=== PATIENT | male | born 1985 | race Caucasian/White ===

== ENCOUNTER 2017-10-08 20:54 | Inpatient (IN) | payer OTHER ==
[2017-10-08 21:01] VITALS: BMI 30.1
--- NOTE | 2017-10-08 21:14 | HP ---
CIWA Score - CIWA Score Nausea/Vomitin Muscle Tremors: 5 Anxiety: 4-Mod. Anxious/Guarded Agitation: 4-Moderately Restless Paroxysmal Sweats: No Perspiration Orientation: 1-Uncertain about Date Tacttile Disturbances: 0-None Auditory Disturbances: 0-None Visual Disturbances: 0-None Headache: 3-Moderate CIWA-Ar Total Score: 20 Admission ROS BHS - HPI Chief Complaint: Alcohol withdrawal symptoms Allergies/Adverse Reactions: Allergies Allergy/AdvReac Type Severity Reaction Status Date / Time No Known Allergies Allergy Verified 10/08/17 21:10 History of Present Illness: 32 years old male with a history of alcohol dependence is seeking admission to detox. Patient has been in previous detox and denies significant period of sobriety. He has medical history of depression, anxiety, Hep C, seizure disorder and suicide attempt at 17 years old but denies suicidal ideation at this time. Patient was referred from [facility] and states that he is homeless. This is his first admission to [facility]. Exam Limitations: Intoxication - Ebola screening Have you traveled outside of the country in the last 21 days: No Have you had contact with anyone from an Ebola affected area: No Have you been sick,other than usual withdrawal symptoms: No Do you have a fever: No - Review of Systems Constitutional: Chills, Diaphoresis, Night Sweats, Changes in sleep EENT: reports: Blurred Vision (Left eye) Respiratory: reports: Cough (Non productive) Cardiac: reports: No Symptoms Reported GI: reports: Nausea, Poor Appetite, Poor Fluid Intake, Abdominal cramping : reports: No Symptoms Reported Musculoskeletal: reports: Muscle Pain, Muscle Weakness Neuro: reports: Headache, Seizure, Tingling, Tremors, Weakness, Unsteady Gait Hematology: reports: No Symptoms Reported Psychiatric: reports: Agitated, Anxious, Depressed Other Systems: Reviewed and Negative Patient History - Patient Medical History Hx Anemia: No Hx Asthma: No Hx Chronic Obstructive Pulmonary Disease (COPD): No Hx Cancer: No Hx Cardiac Disorders: No Hx Congestive Heart Failure: No Hx Hypertension: No Hx Hypercholesterolemia: No Hx Pacemaker: No HX Cerebrovascular Accident: No Hx Seizures: Yes Hx Diabetes: No Hx Gastrointestinal Disorders: No Hx Liver Disease: No Hx Genitourinary Disorders: No Hx Sexually Transmitted Disorders: No Hx Renal Disease (ESRD): No Hx Thyroid Disease: No Hx Human Immunodeficiency Virus (HIV): No (Negative 2016) Hx Hepatitis C: Yes Hx Depression: Yes Hx Suicide Attempt: Yes Hx Bipolar Disorder: Yes Hx Schizophrenia: No - Patient Surgical History Past Surgical History: Yes Hx Neurologic Surgery: No Hx Cataract Extraction: No Hx Cardiac Surgery: No Hx Lung Surgery: No Hx Abdominal Surgery: Yes Hx Appendectomy: No Hx Cholecystectomy: No Hx Genitourinary Surgery: No Hx Orthopedic Surgery: No Anesthesia Reaction: No - PPD History Previous Implant?: Yes Implanted On [facility] Admission?: No PPD to be Administered?: Yes - Reproductive History Patient is a Female of Child Bearing Age (11 -55 yrs old): No (MALE) - Smoking Cessation Smoking history: Current every day smoker Have you smoked in the past 12 months: Yes Aproximately how many cigarettes per day: 20 Hx Chewing Tobacco Use: No Initiated information on smoking cessation: Yes 'Breaking Loose' booklet given: 10/08/17 - Substance & Tx. History Hx Alcohol Use: Yes Hx Substance Use: No Substance Use Type: Alcohol Hx Substance Use Treatment: Yes ([facility]) - Substances Abused Alcohol Route: Oral Frequency: Daily Amount used: Vodka-3 pints, Beer -1 (6 pack) Age of first use: 15 Date of Last Use: 10/08/17 Family Disease History - Family Disease History Family Disease History: Other: Father (Cirrhosis of liver- ) Admission Physical Exam S - Vital Signs Vital Signs: Vital Signs - 24 hr 10/08/17 21:00 Temperature 97.5 F L Pulse Rate 110 H Respiratory 20 Rate Blood Pressure 164/94 - Physical General Appearance: Yes: Moderate Distress, Alcohol on Breath, Intoxicated, Tremorous, Irritable, Sweating, Anxious HEENTM: Yes: EOMI, ANAND, Nasal Congestion Respiratory: Yes: Lungs Clear, Normal Breath Sounds, No Respiratory Distress Neck: Yes: Supple Breast: Yes: Breast Exam Deferred Cardiology: Yes: S1, S2, Tachycardia Abdominal: Yes: Normal Bowel Sounds, Soft, Surgical Scar (right upper abdomen) Genitourinary: Yes: Within Normal Limits Back: Yes: Within Normal Limits Musculoskeletal: Yes: Back pain, Muscle Pain, Muscle weakness Extremities: Yes: Tremors Neurological: Yes: Disoriented, Depressed Affect Integumentary: Yes: Dry, Rash (both hands) Lymphatic: Yes: Within Normal Limits - Diagnostic (1) Alcohol dependence with uncomplicated withdrawal Current Visit: Yes Status: Chronic (2) Depression Current Visit: Yes Status: Chronic (3) Seizures Current Visit: Yes Status: Chronic (4) Hep C w/o coma, chronic Current Visit: Yes Status: Chronic (5) Anxiety Current Visit: Yes Status: Chronic (6) Nicotine dependence Current Visit: Yes Status: Chronic Cleared for Admission [facility] - Detox or Rehab [facility] Level of Care: Medically Managed Detox Regimen/Protocol: Librium S Breath Alcohol Content Breath Alcohol Content: 0.451 Urine Drug Screen - Results Drug Screen Negative: No Urine Drug Screen Results: BZO-Benzodiazepines
[2017-10-08] MEDS ORDERED: MAGNESIUM CITRATE 300 ML BOTTLE PO PRN (21:24)
[2017-10-08] MEDS ORDERED: guaiFENesin/D-METHORPHAN HB 10 ML UNIT-DOSE CUPS PO PRN (21:24)
[2017-10-08] MEDS ORDERED: MAG HYDROX/AL HYDROX/SIMETH 30 ML UNIT-DOSE CUP PO PRN (21:24)
[2017-10-08] MEDS ORDERED: LOPERAMIDE HCL 2 MG CAPSULE PO PRN (21:24)
[2017-10-08] MEDS ORDERED: NICOTINE POLACRILEX 2 MG GUM BC PRN (21:24)
[2017-10-08] MEDS ORDERED: ACETAMINOPHEN 325 MG TABLET (FP) PO PRN (21:24)
[2017-10-08] MEDS ORDERED: IBUPROFEN 400 MG TABLET (FP) PO PRN (21:24)
[2017-10-08] MEDS ORDERED: P-EPHED 60MG/TRIPROLIDI 2.5MG TABLET PO PRN (21:24)
[2017-10-08] MEDS ORDERED: MAGNESIUM HYDROX 2400MG/30ML ORAL SUSPENSION 30 ML CUP PO PRN (21:24)
[2017-10-08] MEDS ORDERED: MENTHOL/PHENOL 1 EACH UD MM PRN (21:24)
[2017-10-08] MEDS: THIAMINE HCL 100 MG TABLET (FP) PO SCH (22:04)
[2017-10-08] MEDS: chlordiazePOXIDE HCL 25 MG CAPSULE PO SCH (22:04)
[2017-10-08] MEDS: hydrOXYzine PAMOATE 50 MG CAPSULE (FP) PO PRN (22:34)
[2017-10-08 23:11] LABS: URINE APPEARANCE CLEAR; URINE BILIRUBIN NEGATIVE (NEGATIVE); URINE BLOOD NEGATIVE (NEGATIVE); URINE COLOR STRAW; URINE GLUCOSE (UA) NEGATIVE (NEGATIVE); URINE KETONE NEGATIVE (NEGATIVE); URINE NITRITE NEGATIVE (NEGATIVE); URINE UROBILINOGEN NEGATIVE mg/dL (0.2-1.0)
[2017-10-08 23:15] LABS: URINE PROTEIN 2+ (NEGATIVE)
[2017-10-08 23:17] LABS: URINE RBC <1 /hpf (0-3)
[2017-10-09] MEDS: chlordiazePOXIDE HCL 25 MG CAPSULE PO SCH ×4 (05:27→22:09)
[2017-10-09] MEDS: chlordiazePOXIDE HCL 25 MG CAPSULE PO PRN ×2 (08:35→12:46)
[2017-10-09 10:04] LABS: MCH 30.3 pg (25.7-33.7); MCHC 32.5 g/dl (32.0-35.9); MEAN CELL VOLUME 93.2 fl (80-96); MEAN PLT VOLUME 6.9 fl (7.5-11.1); PLATELET COUNT 299 K/MM3 (134-434); RDW 15.8 % (11.9-15.9); WHITE BLOOD COUNT 3.5 K/mm3 (4.0-10.0)
[2017-10-09 10:05] LABS: URINE LEUK ESTERASE Negative (NEGATIVE)
[2017-10-09 10:32] LABS: ALBUMIN 3.6 g/dl (3.4-5.0); ALK PHOS 90 U/L (45-117); ANION GAP 9 (8-16); BILIRUBIN,TOTAL 0.7 mg/dL (0.2-1.0); CO2 28 mmol/L (21-32); CREATININE 0.6 mg/dL (0.7-1.3); GLUCOSE,RANDOM 81 mg/dL (74-106); SGOT/AST 93 U/L (15-37); SGPT/ALT 101 U/L (12-78); TOT PROT 7.2 g/dl (6.4-8.2)
[2017-10-09] MEDS: PRENATAL VITAMINS W/ FOLIC ACID TABLET (FP) PO SCH (10:33)
[2017-10-09] MEDS: NICOTINE 14 MG/24 HOURS TOPICAL PATCH TD SCH (10:34)
[2017-10-09] MEDS ORDERED: ONDANSETRON *ODT* 4 MG TABLET SL PRN (12:27)
[2017-10-09] MEDS: hydrOXYzine PAMOATE 50 MG CAPSULE (FP) PO PRN (12:28)
--- NOTE | 2017-10-09 14:16 | CONSULT ---
[facility] Psychiatric Consult - Data Date of interview: 10/09/17 Admission source: [facility] Identifying data: First admission to [facility] for this 32 y/o male seeking detox treatment on for alcohol dependence.Patient is ,a father of one,homeless,unemplotyed and supported on foiod stamps. Substance Abuse History: Confirmed by patient.See current [facility] report for details. Smoking history: Current every day smoker. Have you smoked in the past 12 months: Yes. Aproximately how many cigarettes per day: 20. Hx Chewing Tobacco Use: No. Initiated information on smoking cessation: Yes. 'Breaking Loose' booklet given: 10/08/17. - Substance & Tx. History. Hx Alcohol Use: Yes. Hx Substance Use: No. Substance Use Type: Alcohol. Hx Substance Use Treatment: Yes ([facility]). - Substances Abused. Alcohol. Route: Oral. Frequency: Daily. Amount used: Vodka-3 pints, Beer -1 (6 pack). Age of first use: 15. Date of Last Use: 10/08/17 Medical History: Hepatitis C,antecedent of abdominal surgery,GERD and a history of seizures (withdrawal-related). Psychiatric History: No reported history of psychiatric hospitalizations.Patient declares that he used to be prescribed seroquel, trazodone and neurontin (from a detox facility in [facility]Non-adherent to medications for " more than a month." Diagnosed with MDD and Anxiety Disorder.Mr Bailey states that he has no contact with any [employer]PD care providers at this time.Denies history of suicide attempts. Physical/Sexual Abuse/Trauma History: Patient denies. Additional Comment: Urine Drug Screen Results: BZO-Benzodiazepines.Noted. Mental Status Exam - Mental Status Exam Alert and Oriented to: Time, Place, Person Cognitive Function: Good Patient Appearance: Well Groomed Mood: Hopeful, Euthymic Affect: Appropriate, Normal Range Patient Behavior: Appropriate, Cooperative Speech Pattern: Clear Voice Loudness: Normal Thought Process: Goal Oriented Thought Disorder: Not Present Hallucinations: Denies Suicidal Ideation: Denies Homicidal Ideation: Denies Insight/Judgement: Poor Sleep: Poorly, Difficulty falling asleep Appetite: Good Muscle strength/Tone: Normal Gait/Station: Normal Psychiatric Findings - Problem List ([place] 1, 2,3) (1) Alcohol dependence with uncomplicated withdrawal Current Visit: Yes Status: Acute (2) Substance induced mood disorder Current Visit: Yes Status: Acute (3) Nicotine dependence Current Visit: Yes Status: Acute (4) Insomnia Current Visit: Yes Status: Acute - Initial Treatment Plan Initial Treatment Plan: Psychoeducation.Detoxification.Seroquel 100 mg po hs ( patient's request).Side effects/benefits are discussed with the patient.He is in agreement with this careplan.Observation.Survey of pharmacy claims : none found.NO Home medications.
--- NOTE | 2017-10-09 15:18 | PN ---
S CIWA - CIWA Score Nausea/Vomitin Muscle Tremors: 3 Anxiety: 4-Mod. Anxious/Guarded Agitation: 3 Paroxysmal Sweats: 3 Orientation: 0-Oriented Tacttile Disturbances: 1-Very Mild Itch/Numbness Auditory Disturbances: 2-Mild Harshness/Frighten Visual Disturbances: 0-None Headache: 0-None Present CIWA-Ar Total Score: 19 BHS Progress Note (SOAP) Subjective: Nausea, Tremors, Interrupted Sleep, Fatigue, Sweating. Objective: PT. A & O X 2 (UNCERTAIN ABOUT DAY/ DATE). NO ACUTE DISTRESS. 10/09/17 15:15 Vital Signs Temperature 96.1 F L 10/09/17 13:39 Pulse Rate 87 10/09/17 13:39 Respiratory Rate 20 10/09/17 13:39 Blood Pressure 139/88 10/09/17 13:39 O2 Sat by Pulse Oximetry (%) Laboratory Tests 10/08/17 10/09/17 10/09/17 23:00 07:00 07:00 WBC 3.5 L RBC 4.11 Hgb 12.4 Hct 38.3 MCV 93.2 MCH 30.3 MCHC 32.5 RDW 15.8 Plt Count 299 MPV 6.9 L Sodium 142 Potassium 3.8 Chloride 105 Carbon Dioxide 28 Anion Gap 9 BUN 10 Creatinine 0.6 L Creat Clearance w eGFR > 60 Random Glucose 81 Calcium 8.0 L Total Bilirubin 0.7 AST 93 H ALT 101 H Alkaline Phosphatase 90 Total Protein 7.2 Albumin 3.6 Urine Color Straw Urine Appearance Clear Urine pH 7.0 Ur Specific [place] 1.011 Urine Protein 2+ H Urine Glucose (UA) Negative Urine Ketones Negative Urine Blood Negative Urine Nitrite Negative Urine Bilirubin Negative Urine Urobilinogen Negative Ur Leukocyte Esterase Negative Urine WBC (Auto) None Urine RBC (Auto) <1 RPR Titer 10/09/17 07:00 WBC RBC Hgb Hct MCV MCH MCHC RDW Plt Count MPV Sodium Potassium Chloride Carbon Dioxide Anion Gap BUN Creatinine Creat Clearance w eGFR Random Glucose Calcium Total Bilirubin AST ALT Alkaline Phosphatase Total Protein Albumin Urine Color Urine Appearance Urine pH Ur Specific [place] Urine Protein Urine Glucose (UA) Urine Ketones Urine Blood Urine Nitrite Urine Bilirubin Urine Urobilinogen Ur Leukocyte Esterase Urine WBC (Auto) Urine RBC (Auto) RPR Titer Nonreactive LABS NOTED. Assessment: 10/09/17 15:16 WITHDRAWAL SYMPTOMS. Plan: CONTINUE DETOX. INCREASE DAILY PO FLUID INTAKE. REPEAT AST ON 10/11/2017 FOR ELEVATED ADMISSION LEVEL.
[2017-10-09] MEDS: QUEtiapine FUMARATE 100 MG TABLET (FP) PO SCH (22:09)
[2017-10-09] MEDS: THIAMINE HCL 100 MG TABLET (FP) PO SCH (22:09)
[2017-10-10] MEDS: chlordiazePOXIDE HCL 25 MG CAPSULE PO SCH ×3 (05:37→17:39)
--- NOTE | 2017-10-10 07:57 | EKG ---
Test Reason : Blood Pressure : / mmHG Vent. Rate : 076 BPM Atrial Rate : 076 BPM P-R Int : 138 ms QRS Dur : 106 ms QT Int : 388 ms P-R-T Axes : 019 019 -02 degrees QTc Int : 436 ms NORMAL SINUS RHYTHM NONSPECIFIC T WAVE ABNORMALITY ABNORMAL ECG WHEN COMPARED WITH ECG OF 08-OCT-2017 23:13, NO SIGNIFICANT CHANGE WAS FOUND Confirmed by MD Dodge Daniel [id number]) on 10/09/2017 4:47:20 PM Also confirmed by MD Dodge Daniel ([id number]), editor sound MILTON GONZALEZ ([id number]) on 10/10/2017 7:57:31 AM Also confirmed by MD Dodge Daniel ([id number]), editor sound MILTON GONZALEZ ([id number]) on 10/10/2017 8:26:20 AM Referred By: WAYNE HERNANDEZ Confirmed By:Milton Dodge MD
--- NOTE | 2017-10-10 07:57 | EKG ---
Test Reason : Blood Pressure : / mmHG Vent. Rate : 088 BPM Atrial Rate : 088 BPM P-R Int : 146 ms QRS Dur : 102 ms QT Int : 356 ms P-R-T Axes : 074 023 036 degrees QTc Int : 430 ms NORMAL SINUS RHYTHM INCOMPLETE RIGHT BUNDLE BRANCH BLOCK BORDERLINE ECG NO PREVIOUS ECGS AVAILABLE Confirmed by MD Dodge Daniel [id number]) on 10/09/2017 3:01:29 PM Also confirmed by MD Dodge Daniel ([id number]), technical editor MILTON GONZALEZ ([id number]) on 10/10/2017 7:57:37 AM Also confirmed by MD Dodge Daniel ([id number]), technical editor MILTON GONZALEZ ([id number]) on 10/10/2017 8:26:11 AM Referred By: WAYNE HERNANDEZ Confirmed By:Milton Dodge MD
[2017-10-10] MEDS: NICOTINE 14 MG/24 HOURS TOPICAL PATCH TD SCH (10:30)
[2017-10-10] MEDS: PRENATAL VITAMINS W/ FOLIC ACID TABLET (FP) PO SCH (10:30)
[2017-10-10] MEDS: chlordiazePOXIDE HCL 25 MG CAPSULE PO PRN (13:09)
[2017-10-10] MEDS: hydrOXYzine PAMOATE 50 MG CAPSULE (FP) PO PRN (13:09)
--- NOTE | 2017-10-10 14:45 | PN ---
[facility] CIWA - CIWA Score Nausea/Vomitin-No Nausea/No Vomiting Muscle Tremors: 4-Moderate,w/Arms Extend Anxiety: 3 Agitation: 3 Paroxysmal Sweats: 3 Orientation: 0-Oriented Tacttile Disturbances: 0-None Auditory Disturbances: 2-Mild Harshness/Frighten Visual Disturbances: 1-Very Mild Sensitivity Headache: 0-None Present CIWA-Ar Total Score: 16 S Progress Note (SOAP) Subjective: Sweating, tremors, Fatigue. Objective: PT. A & O X 3. NO ACUTE DISTRESS. 10/10/17 14:42 Vital Signs Temperature 96.8 F L 10/10/17 13:06 Pulse Rate 85 10/10/17 13:06 Respiratory Rate 18 10/10/17 13:06 Blood Pressure 138/89 10/10/17 13:06 O2 Sat by Pulse Oximetry (%) Laboratory Tests 10/08/17 10/09/17 10/09/17 23:00 07:00 07:00 WBC 3.5 L RBC 4.11 Hgb 12.4 Hct 38.3 MCV 93.2 MCH 30.3 MCHC 32.5 RDW 15.8 Plt Count 299 MPV 6.9 L Sodium 142 Potassium 3.8 Chloride 105 Carbon Dioxide 28 Anion Gap 9 BUN 10 Creatinine 0.6 L Creat Clearance w eGFR > 60 Random Glucose 81 Calcium 8.0 L Total Bilirubin 0.7 AST 93 H ALT 101 H Alkaline Phosphatase 90 Total Protein 7.2 Albumin 3.6 Urine Color Straw Urine Appearance Clear Urine pH 7.0 Ur Specific [place] 1.011 Urine Protein 2+ H Urine Glucose (UA) Negative Urine Ketones Negative Urine Blood Negative Urine Nitrite Negative Urine Bilirubin Negative Urine Urobilinogen Negative Ur Leukocyte Esterase Negative Urine WBC (Auto) None Urine RBC (Auto) <1 RPR Titer 10/09/17 07:00 WBC RBC Hgb Hct MCV MCH MCHC RDW Plt Count MPV Sodium Potassium Chloride Carbon Dioxide Anion Gap BUN Creatinine Creat Clearance w eGFR Random Glucose Calcium Total Bilirubin AST ALT Alkaline Phosphatase Total Protein Albumin Urine Color Urine Appearance Urine pH Ur Specific [place] Urine Protein Urine Glucose (UA) Urine Ketones Urine Blood Urine Nitrite Urine Bilirubin Urine Urobilinogen Ur Leukocyte Esterase Urine WBC (Auto) Urine RBC (Auto) RPR Titer Nonreactive LABS NOTED. Assessment: 10/10/17 14:43 WITHDRAWAL SYMPTOMS. Plan: CONTINUE DETOX. REPEAT UA FOR ELEVATED ADMISSION UA BLOOD LEVEL. INCREASE DAILY PO FLUID INTAKE.
[2017-10-10 17:21] LABS: URINE APPEARANCE CLEAR; URINE BILIRUBIN NEGATIVE (NEGATIVE); URINE BLOOD NEGATIVE (NEGATIVE); URINE COLOR LTYELLOW; URINE GLUCOSE (UA) NEGATIVE (NEGATIVE); URINE KETONE NEGATIVE (NEGATIVE); URINE LEUK ESTERASE NEGATIVE (NEGATIVE); URINE NITRITE NEGATIVE (NEGATIVE); URINE PROTEIN NEGATIVE (NEGATIVE); URINE UROBILINOGEN NEGATIVE mg/dL (0.2-1.0)
[2017-10-10 19:32] LABS: URINE LEUK ESTERASE Negative (NEGATIVE)
[2017-10-10] MEDS: QUEtiapine FUMARATE 100 MG TABLET (FP) PO SCH (22:16)
[2017-10-10] MEDS: chlordiazePOXIDE 5 MG CAPSULE PO SCH (22:16)
[2017-10-10] MEDS: THIAMINE HCL 100 MG TABLET (FP) PO SCH (22:16)
[2017-10-11] MEDS: chlordiazePOXIDE 5 MG CAPSULE PO SCH ×3 (05:55→17:30)
[2017-10-11] MEDS: NICOTINE 14 MG/24 HOURS TOPICAL PATCH TD SCH (10:31)
[2017-10-11] MEDS: PRENATAL VITAMINS W/ FOLIC ACID TABLET (FP) PO SCH (10:31)
[2017-10-11] MEDS: hydrOXYzine PAMOATE 50 MG CAPSULE (FP) PO PRN (17:33)
--- NOTE | 2017-10-11 19:14 | PN ---
BHS Progress Note (SOAP) Subjective: Constipation, Tremors, Sweating. Objective: PT. A & O X 3, OBSERVED AMBULATING ON UNIT. NO ACUTE DISTRESS. 10/11/17 19:12 Vital Signs Temperature 98.2 F 10/11/17 17:53 Pulse Rate 71 10/11/17 17:53 Respiratory Rate 16 10/11/17 17:53 Blood Pressure 111/63 10/11/17 17:53 O2 Sat by Pulse Oximetry (%) Laboratory Tests 10/08/17 10/09/17 10/09/17 23:00 07:00 07:00 WBC 3.5 L RBC 4.11 Hgb 12.4 Hct 38.3 MCV 93.2 MCH 30.3 MCHC 32.5 RDW 15.8 Plt Count 299 MPV 6.9 L Sodium 142 Potassium 3.8 Chloride 105 Carbon Dioxide 28 Anion Gap 9 BUN 10 Creatinine 0.6 L Creat Clearance w eGFR > 60 Random Glucose 81 Calcium 8.0 L Total Bilirubin 0.7 AST 93 H ALT 101 H Alkaline Phosphatase 90 Total Protein 7.2 Albumin 3.6 Urine Color Straw Urine Appearance Clear Urine pH 7.0 Ur Specific [place] 1.011 Urine Protein 2+ H Urine Glucose (UA) Negative Urine Ketones Negative Urine Blood Negative Urine Nitrite Negative Urine Bilirubin Negative Urine Urobilinogen Negative Ur Leukocyte Esterase Negative Urine WBC (Auto) None Urine RBC (Auto) <1 RPR Titer 10/09/17 10/10/17 10/11/17 07:00 14:55 07:00 WBC RBC Hgb Hct MCV MCH MCHC RDW Plt Count MPV Sodium Potassium Chloride Carbon Dioxide Anion Gap BUN Creatinine Creat Clearance w eGFR Random Glucose Calcium Total Bilirubin AST 76 H ALT Alkaline Phosphatase Total Protein Albumin Urine Color Ltyellow Urine Appearance Clear Urine pH 8.0 Ur Specific [place] 1.015 Urine Protein Negative Urine Glucose (UA) Negative Urine Ketones Negative Urine Blood Negative Urine Nitrite Negative Urine Bilirubin Negative Urine Urobilinogen Negative Ur Leukocyte Esterase Negative Urine WBC (Auto) Urine RBC (Auto) RPR Titer Nonreactive LABS NOTED. RESULTS OF REPEAT AST AND UA NOTED. 10/11/17 19:13 Assessment: 10/11/17 19:13 WITHDRAWAL SYMPTOMS. Plan: CONTINUE DETOX. INCREASE DAILY PO FLUID INTAKE.
[2017-10-11] MEDS: chlordiazePOXIDE HCL 25 MG CAPSULE PO PRN (20:11)
[2017-10-11] MEDS: chlordiazePOXIDE HCL 10 MG CAPSULE PO SCH (22:13)
[2017-10-11] MEDS: QUEtiapine FUMARATE 100 MG TABLET (FP) PO SCH (22:13)
[2017-10-11] MEDS: THIAMINE HCL 100 MG TABLET (FP) PO SCH (22:13)
[2017-10-12] MEDS: chlordiazePOXIDE HCL 10 MG CAPSULE PO SCH ×2 (05:20→10:39)
[2017-10-12 09:35] VITALS: BP 132/78; PULSE 94; TEMP 96.2
[2017-10-12] MEDS: NICOTINE 14 MG/24 HOURS TOPICAL PATCH TD SCH (10:39)
[2017-10-12] MEDS: PRENATAL VITAMINS W/ FOLIC ACID TABLET (FP) PO SCH (10:39)
--- NOTE | 2017-10-12 21:41 | DS ---
[facility] Detox Discharge Summary Admission Date: 10/08/17 Discharge Date: 10/12/17 - History Present History: Alcohol Dependence Additional Comments: PATIENT GOING TO [facility] [place] FOR AFTERCARE. PATIENT WAS DISCHARGED FROM DETOX UNIT NI STABLE MEDICAL CONDITION. Pertinent Past History: Hep C, Depression, Bipolar Disorder, History of Seizures, Anxiety, Insomnia, Nicotine Dependence. - Physical Exam Results Vital Signs: Vital Signs Temperature 96.2 F L 10/12/17 09:35 Pulse Rate 94 H 10/12/17 09:35 Respiratory Rate 20 10/12/17 09:35 Blood Pressure 132/78 10/12/17 09:35 O2 Sat by Pulse Oximetry (%) Pertinent Admission Physical Exam Findings: WITHDRAWAL SYMPTOMS. Laboratory Tests 10/08/17 10/09/17 10/09/17 23:00 07:00 07:00 WBC 3.5 L RBC 4.11 Hgb 12.4 Hct 38.3 MCV 93.2 MCH 30.3 MCHC 32.5 RDW 15.8 Plt Count 299 MPV 6.9 L Sodium 142 Potassium 3.8 Chloride 105 Carbon Dioxide 28 Anion Gap 9 BUN 10 Creatinine 0.6 L Creat Clearance w eGFR > 60 Random Glucose 81 Calcium 8.0 L Total Bilirubin 0.7 AST 93 H ALT 101 H Alkaline Phosphatase 90 Total Protein 7.2 Albumin 3.6 Urine Color Straw Urine Appearance Clear Urine pH 7.0 Ur Specific [place] 1.011 Urine Protein 2+ H Urine Glucose (UA) Negative Urine Ketones Negative Urine Blood Negative Urine Nitrite Negative Urine Bilirubin Negative Urine Urobilinogen Negative Ur Leukocyte Esterase Negative Urine WBC (Auto) None Urine RBC (Auto) <1 RPR Titer 10/09/17 10/10/17 10/11/17 07:00 14:55 07:00 WBC RBC Hgb Hct MCV MCH MCHC RDW Plt Count MPV Sodium Potassium Chloride Carbon Dioxide Anion Gap BUN Creatinine Creat Clearance w eGFR Random Glucose Calcium Total Bilirubin AST 76 H ALT Alkaline Phosphatase Total Protein Albumin Urine Color Ltyellow Urine Appearance Clear Urine pH 8.0 Ur Specific [place] 1.015 Urine Protein Negative Urine Glucose (UA) Negative Urine Ketones Negative Urine Blood Negative Urine Nitrite Negative Urine Bilirubin Negative Urine Urobilinogen Negative Ur Leukocyte Esterase Negative Urine WBC (Auto) Urine RBC (Auto) RPR Titer Nonreactive LABS NOTED. - Treatment Hospital Course: Detox Protocol Followed, Detoxed Safely, Responded well, Discharged Condition Good Patient has Accepted a Rehab Referral to: PT. GOING TO [facility] OUTPATIENT [facility] FOR AFTERCARE. - Medication Discharge Medications: Ambulatory Orders Quetiapine Fumarate [Seroquel] 100 mg PO HS #30 tablet 10/09/17 - Diagnosis (1) Alcohol dependence with uncomplicated withdrawal Status: Acute (2) Insomnia Status: Acute Qualifiers: Insomnia type: unspecified Qualified Code(s): G47.00 - Insomnia, unspecified (3) Nicotine dependence Status: Acute Qualifiers: Nicotine product type: cigarettes Substance use status: uncomplicated Qualified Code(s): F17.210 - Nicotine dependence, cigarettes, uncomplicated (4) Anxiety Status: Chronic (5) Depression Status: Chronic Qualifiers: Depression Type: unspecified Qualified Code(s): F32.9 - Major depressive disorder, single episode, unspecified (6) Hep C w/o coma, chronic Status: Chronic (7) Seizures Status: Chronic (8) Substance induced mood disorder Status: Acute - AMA Did Patient Leave Against Medical Advice: No
== END 2017-10-12 10:40 | disposition home or self-care (01) | DRG 775 ==
LOC: YASAS 20:54 → Y3N 21:29
PROVIDERS: ADMIT Internal Medicine; ATTEND Internal Medicine
PROC: HZ2ZZZZ Detoxification Services for Substance Abuse Treatment (ICD-10-PCS; principal; 2017-10-08)
DX: F10.230 Alcohol dependence with withdrawal, uncomplicated (principal); F17.210 Nicotine dependence, cigarettes, uncomplicated; F19.24 Other psychoactive substance dependence with psychoactive substance-induced mood disorder; F32.9 Major depressive disorder, single episode, unspecified; F41.9 Anxiety disorder, unspecified; G40.909 Epilepsy, unspecified, not intractable, without status epilepticus; B18.2 Chronic viral hepatitis C; Z59.0 Homelessness
CPT/HCPCS: 36415; 80053; 81003; 81015; 84450; 85027; 86593; 93005; 93010